=== PATIENT | female | born 1960 | race Caucasian/White ===

== ENCOUNTER 2025-03-29 16:03 | Emergency (ER) | payer OTHER ==
[2025-03-29 16:17] VITALS: BMI 33.3
[2025-03-29 18:00] LABS: ABSOLUTE IMMATURE GRANULOCYTES 0.06 x10^3/uL (0.0-0.031); BASOPHILS # 0.07 x10^3/uL (0.01-0.08); EOSINOPHIL % 0.6 % (0.7-5.8); EOSINOPHILS # 0.07 x10^3/uL (0.04-0.36); MCHC 31.2 g/dl (32.2-35.5); MEAN CELL VOLUME 90.9 fl (79.4-94.8); MEAN PLT VOLUME 11.2 fl (9.4-12.3); MONOCYTE # 1.13 x10^3/uL (0.24-0.86); MONOCYTE % 10.1 % (4.7-12.5); RDW 14.3 % (12.4-16.4)
[2025-03-29 18:14] LABS: INR 1.14 (0.83-1.09); PROTHROMBIN TIME (PATIENT) 12.4 SEC (9.7-13.0)
[2025-03-29 18:17] LABS: ACTIVATED PTT 28.0 SECONDS (25.2-36.5)
[2025-03-29 18:25] LABS: GLUCOSE,RANDOM 108.0 mg/dL (74-106)
[2025-03-29 18:26] LABS: TOT PROT 7.1 g/dl (6.4-8.2)
[2025-03-29 18:27] LABS: CO2 23.0 mmol/L (21-32)
[2025-03-29 18:28] LABS: ALK PHOS 65.0 U/L (40-150)
[2025-03-29 18:31] LABS: CREATININE 1.0 mg/dL (0.55-1.3); SGOT/AST 20.0 U/L (5-34); SGPT/ALT 16.0 U/L (0-55)
[2025-03-29 18:48] LABS: URINE APPEARANCE CLOUDY; URINE BILIRUBIN NEGATIVE (NEGATIVE); URINE COLOR YELLOW; URINE GLUCOSE (UA) NEGATIVE (NEGATIVE); URINE KETONE NEGATIVE (NEGATIVE)
[2025-03-29 18:49] LABS: URINE LEUK ESTERASE 2+ (NEGATIVE); URINE NITRITE NEGATIVE (NEGATIVE); URINE PROTEIN 1+ (NEGATIVE); URINE UROBILINOGEN 0.2 mg/dL (0.2-1.0)
[2025-03-29 19:07] VITALS: BP 127/67; PULSE 79; RESP 18; TEMP 97.5
== END 2025-03-29 19:12 | disposition home or self-care (01) ==
LOC: JER 16:03
DX: R31.9 Hematuria, unspecified (principal); R10.32 Left lower quadrant pain
CPT/HCPCS: 36415; 80053; 81003; 85025; 85610; 85730; 86850; 86900; 86901; 87086; 99283-25